=== PATIENT | male | born 1980 | race Two or more races ===

== ENCOUNTER 2020-02-06 10:53 | Emergency (ER) | payer OTHER ==
[~2020-02-06] VITALS: Ht 180.3 cm; Wt 104.3 kg
[2020-02-06 12:03] VITALS: BP 156/114
[2020-02-06] MEDS ORDERED: HYDROcodone-ACET 5/325MG TAB PO ONE (12:30)
[2020-02-06] MEDS ORDERED: BACITRACIN TOP OINT 1 UD PKG TOP ONE ×2 (12:39→12:45)
== END 2020-02-06 13:06 | disposition home or self-care (01) ==
LOC: ER 10:53
DX: S61.206A Unspecified open wound of right little finger without damage to nail, initial encounter (principal); Z89.021 Acquired absence of right finger(s); Z88.6 Allergy status to analgesic agent; X58.XXXA Exposure to other specified factors, initial encounter; Y93.89 Activity, other specified; Y92.89 Other specified places as the place of occurrence of the external cause; Y99.8 Other external cause status
CPT/HCPCS: 29130; 73140